=== PATIENT | female | born 1945 | race Caucasian/White ===

== ENCOUNTER 2019-09-13 14:48 | Emergency (ER) | payer MEDICARE, BC ==
[~2019-09-13] VITALS: Ht 162.6 cm; Wt 89.4 kg
[2019-09-13 15:19] LABS: BASO # 0.1 (0.02-0.10); EOS # 0.2 (0.04-0.40); EOS % 1.5 % (1.0-5.0); HEMATOCRIT 41.9 % (37.0-47.0); HEMOGLOBIN 13.8 g/dL (12.5-16.0); LYMPH# 3.2 (1.50-4.00); MEAN CELL VOLUME 91 fl (78-100); MEAN CORPUSCULAR HEMOGLOBIN 30 pg (27-31); MEAN CORPUSCULAR HGB CONC 33 g/dL (33-37); MEAN PLATELET VOLUME 9.4 fl (7.4-10.4); MONO # 0.9 (0.20-0.80); PLATELET COUNT 233 K/mm3 (130-400); RED BLOOD COUNT 4.61 M/mm3 (4.10-5.30); RED CELL DISTRIBUTION WIDTH 13.8 % (11.5-14.5); WHITE BLOOD COUNT 10.3 K/mm3 (4.8-10.8)
[2019-09-13 15:30] LABS: POTASSIUM 4.2 mmol/L (3.5-5.1); SODIUM 139 mmol/L (136-145)
[2019-09-13 15:31] LABS: CALCIUM 9.6 mg/dL (8.3-10.5)
[2019-09-13 15:32] LABS: GLUCOSE 250 mg/dL (65-105)
[2019-09-13 15:33] LABS: TOTAL PROTEIN 7.5 g/dL (6.2-8.1)
[2019-09-13 15:34] LABS: CARBON DIOXIDE 23 mmol/L (23-31); TOTAL BILIRUBIN 0.5 mg/dL (0.2-1.2)
[2019-09-13 15:38] LABS: AST-SGOT 25 U/L (5-34); D-DIMER 0.58 mg/L FEU (0.15-0.50)
[2019-09-13 15:39] LABS: ALT/SGPT 27 U/L (0-55)
[2019-09-13 15:45] LABS: TROPONIN-I < 0.03 ng/mL (<0.030)
[2019-09-13 16:25] LABS: PH-URINE 5.5 (5.0 - 8.0); URINE APPEARANCE HAZY; URINE BILIRUBIN NEGATIVE (NEGATIVE); URINE BLOOD NEGATIVE (NEGATIVE); URINE COLOR YELLOW; URINE KETONE NEGATIVE (NEGATIVE); URINE LEUKOCYTE ESTERASE NEGATIVE (NEGATIVE); URINE NITRATE NEGATIVE (NEGATIVE); URINE PROTEIN(semi-quant) TRACE mg/dL (NEGATIVE); URINE UROBILINOGEN NORMAL (NORMAL)
[2019-09-13] MEDS ORDERED: NORVASC 10MG10 MG PO (16:33)
[2019-09-13] MEDS ORDERED: ZYLOPRIM300 MG PO (16:33)
[2019-09-13] MEDS ORDERED: TENORMIN100 MG PO (16:34)
[2019-09-13] MEDS ORDERED: LASIX20 M1 PO ×2 (16:36→17:41)
[2019-09-13] MEDS ORDERED: NEURONTIN300 M1 PO (16:36)
[2019-09-13] MEDS ORDERED: LOSARTAN POTAS100 MG PO (16:36)
[2019-09-13] MEDS ORDERED: MULTIVITAMIN1 SGL PO (16:37)
[2019-09-13] MEDS ORDERED: LANTUS PEN100 U/ML SQ ×3 (16:38→16:39)
[2019-09-13] MEDS ORDERED: K-TAB10 MEQ PO (17:41)
[2019-09-13 17:55] VITALS: BP 162/71
== END 2019-09-13 17:55 | disposition home or self-care (01) ==
LOC: ED 14:48
PROVIDERS: Nurse Practitioner Family
DX: R60.9 Edema, unspecified (principal); R06.00 Dyspnea, unspecified; E11.9 Type 2 diabetes mellitus without complications; I10 Essential (primary) hypertension; M10.9 Gout, unspecified; Z90.89 Acquired absence of other organs; Z90.49 Acquired absence of other specified parts of digestive tract; Z79.4 Long term (current) use of insulin
CPT/HCPCS: J1940; Q9967

== ENCOUNTER 2019-09-18 09:47 | Emergency (ER) | payer MEDICARE, BC ==
[~2019-09-18] VITALS: Ht 162.6 cm; Wt 91.8 kg
[~2019-09-18 09:47] MED LIST: K-TAB10 MEQ PO; LANTUS PEN100 U/ML SQ; LASIX20 M1 PO; LOSARTAN POTAS100 MG PO; MULTIVITAMIN1 SGL PO; NEURONTIN300 M1 PO; NORVASC 10MG10 MG PO; TENORMIN100 MG PO; ZYLOPRIM300 MG PO
[2019-09-18 10:46] LABS: BASO # 0.1 (0.02-0.10); EOS # 0.2 (0.04-0.40); EOS % 2.9 % (1.0-5.0); HEMATOCRIT 42.6 % (37.0-47.0); HEMOGLOBIN 14.6 g/dL (12.5-16.0); LYMPH# 2.5 (1.50-4.00); MEAN CELL VOLUME 89 fl (78-100); MEAN CORPUSCULAR HEMOGLOBIN 31 pg (27-31); MEAN CORPUSCULAR HGB CONC 34 g/dL (33-37); MEAN PLATELET VOLUME 9.8 fl (7.4-10.4); MONO # 0.7 (0.20-0.80); NEU # 4.5 (1.40-6.50); PLATELET COUNT 238 K/mm3 (130-400); RED BLOOD COUNT 4.78 M/mm3 (4.10-5.30); RED CELL DISTRIBUTION WIDTH 13.7 % (11.5-14.5)
[2019-09-18 11:24] LABS: URINE APPEARANCE CLEAR; URINE BILIRUBIN NEGATIVE (NEGATIVE); URINE BLOOD NEGATIVE (NEGATIVE); URINE COLOR YELLOW; URINE GLUCOSE NEGATIVE (NEGATIVE); URINE KETONE NEGATIVE (NEGATIVE); URINE LEUKOCYTE ESTERASE NEGATIVE (NEGATIVE); URINE NITRATE NEGATIVE (NEGATIVE); URINE PROTEIN(semi-quant) NEGATIVE (NEGATIVE); URINE UROBILINOGEN NORMAL (NORMAL); URINE WBC 0-1 /hpf (0-3)
[2019-09-18 11:25] LABS: ALBUMIN 3.9 g/dL (3.4-4.8)
[2019-09-18 11:26] LABS: POTASSIUM 4.2 mmol/L (3.5-5.1); SODIUM 141 mmol/L (136-145)
[2019-09-18 11:27] LABS: CALCIUM 9.5 mg/dL (8.3-10.5)
[2019-09-18 11:28] LABS: GLUCOSE 189 mg/dL (65-105); TOTAL PROTEIN 7.3 g/dL (6.2-8.1)
[2019-09-18 11:29] LABS: CARBON DIOXIDE 24 mmol/L (23-31)
[2019-09-18 11:30] LABS: TOTAL BILIRUBIN 0.5 mg/dL (0.2-1.2)
[2019-09-18 11:33] LABS: AST-SGOT 22 U/L (5-34)
[2019-09-18 11:35] LABS: ALT/SGPT 24 U/L (0-55)
[2019-09-18 12:18] LABS: TROPONIN-I < 0.03 ng/mL (<0.030)
[2019-09-18 12:49] VITALS: BP 189/72
[2019-09-18] MEDS ORDERED: NORCO 325 MG-51 TA1 PO (12:58)
== END 2019-09-18 13:09 | disposition home or self-care (01) ==
LOC: ED 09:47
PROVIDERS: Nurse Practitioner Family
DX: R07.89 Other chest pain (principal); R10.32 Left lower quadrant pain; I10 Essential (primary) hypertension; E11.9 Type 2 diabetes mellitus without complications; K58.9 Irritable bowel syndrome, unspecified; Z90.49 Acquired absence of other specified parts of digestive tract; Z90.89 Acquired absence of other organs; Z79.4 Long term (current) use of insulin
CPT/HCPCS: J1885; J2405; J7030